=== PATIENT | female | born 1970 | race Caucasian/White ===

== ENCOUNTER → 2016-07-07 | Outpatient (CLI) | payer BC ==
[~2016-07-07] MED LIST: PRENTAB26 PO
--- NOTE | 2016-07-07 13:33 | MAMMOGRAPHY REPORT ---
BILATERAL DIGITAL DIAGNOSTIC MAMMOGRAM TOMOSYNTHESIS WITH CAD AND TARGETED LEFT ULTRASOUND: 7 CLINICAL HISTORY: Callback from screening mammogram dated 11/04/2015 for right breast calcifications. At the time of the diagnostic workup, the patient also reported a left nipple mass which has slowl y increased over the last 5 years. She also notes nonspontaneous milky left nipple discharge. She denies any bloody nipple discharge or palpable left breast lumps. TECHNIQUE: Breast tomosynthesis in addition to standard 2D mammography was performed. Current study was also evaluated with a Computer Aided Detection (CAD) system. Spot magnification right cc and M L views and left CC and MLO 2-D and tomosynthesis images were obtained. COMPARISON: Comparison is made to exam dated: 11/04/2015 mammogram - [facility]. BREAST COMPOSITION: The tissue of both breasts is heterogeneously dense, which may obscure small ma sses. FINDINGS: Spot magnification views of the right breast demonstrate grouped faint, predominantly punctate calci fications in the right 12:00 breast, with total extent measuring approximately 13 mm. On the latera l views, at least 2-3 of the calcifications demonstrate layering, suggestive of benign milk of calci um. However, the majority of the calcifications do not clearly layer and are therefore indeterminat e. The calcifications are not significantly increased compared to the original screening mammogram dated 11/04/2015. As the calcifications are not clearly benign, I would recommend stereotactic biops y for further evaluation. However, given that some of the calcifications are layering suggestive of milk of calcium, a short interval follow-up is also reasonable. Mammograms of the left breast demonstrate no suspicious masses, calcifications, or areas of architec tural distortion. There has been no significant interval change in the left breast compared to prio r exams. A few scattered benign-appearing left breast calcifications are unchanged. A left nipple mass is seen arising from the left upper outer aspect of the left nipple. Targeted ultrasound was performed of the left subareolar breast, which shows sonographically normal tissue without evidence of a clear intraductal mass or other suspicious finding. IMPRESSION: ACR BI-RADS CATEGORY 4: SUSPICIOUS, TARGETED ULTRASOUND ACR BI-RADS CATEGORY 4: SUSPICI OUS 1. Grouped calcifications in the right 12:00 breast, , some of which demonstrate layering on the la teral view suggestive of benign milk of calcium. However, the majority of the calcifications do not layer and are indeterminate. I recommend stereotactic biopsy of the calcifications for further ronny luation; short interval follow-up is also reasonable given that there are some features suggestive o f milk of calcium and given that there has not been a significant change from the October 2015 screen ing exam. The patient was like to weigh her options before making a decision. 2. At the time of the diagnostic workup, the patient reported a left nipple mass which has been pro gressively growing for 5 years, as well as milky nonspontaneous left nipple discharge. No intraduct al mass or other abnormality is seen mammographically or sonographically in the left subareolar [address]. Recommend clinical follow-up, and consider surgical consultation for biopsy of the left nipple mass. A phone call was made to the physician's office to confirm faxed results were received. The patient has been verbally notified of the results. Approximately 10% of breast cancers are not detected with mammography. A negative mammographic repor t should not delay biopsy if a clinically suggestive mass is present. Consuelo Carrion M.D. ah/:07/07/2016 12:26:29 Skin Specialist: Sherie BERMAN(Branden)(Jarad), [facility] letter sent: Abnormal 4/5 BI-RADS Code: ACR BI-RADS Category 4: Suspicious Ultrasound BI-RADS: ACR BI-RADS Category 4: Suspic ious
== END | disposition home or self-care (01) ==
LOC: C.MAMM 10:56
PROVIDERS: ATTEND Nurse Practitioner Family
DX: Z12.31 Encounter for screening mammogram for malignant neoplasm of breast (principal); N64.89 Other specified disorders of breast; N64.52 Nipple discharge